=== PATIENT | male | born 1985 | race American Indian/Alaskan Native ===

== ENCOUNTER 2016-08-13 00:41 | Emergency (ER) | payer SELFPAY ==
[2016-08-13] MEDS ORDERED: NACL 0.9% 1000 ML 1,000 ML IV ONE (00:49)
[2016-08-13 01:15] LABS: Basophils % (Auto) 0.5 % (0.0-1.8); Eosinophils % (Auto) 1.6 % (0.0-4.3); Hematocrit 44.4 % (35.5-45.6); Hemoglobin 14.9 gm/dl (11.8-15.2); Mean Corpuscular HGB Conc 34 % (32-34); Mean Corpuscular Hemoglobin 31 pg (28-32); Mean Corpuscular Volume 93 fl (84-94); Platelet Count 227 K/mm3 (140-440); Red Blood Count 4.75 M/mm3 (3.65-5.03); Red Cell Distribution Width 12.3 % (13.2-15.2); White Blood Count 6.1 K/mm3 (4.5-11.0)
[2016-08-13 01:32] LABS: INR 1.13 (0.87-1.13)
[2016-08-13 01:33] LABS: Alanine Aminotransferase 18 units/L (7-56); Albumin 4.4 g/dL (3.9-5); Albumin/Globulin Ratio 1.5 %; Alkaline Phosphatase 66 units/L (35-129); Anion Gap 19 mmol/L; Blood Urea Nitrogen 10 mg/dL (9-20); Calcium 9.2 mg/dL (8.4-10.2); Carbon Dioxide 23 mmol/L (22-30); Chloride 102.5 mmol/L (98-107); Glucose 117 mg/dL (75-100); Lipase 34 units/L (13-60); Partial Thromboplastin Time 29.1 Sec. (24.2-36.6); Potassium 3.7 mmol/L (3.6-5.0); Sodium 141 mmol/L (137-145); Total Protein 7.3 g/dL (6.3-8.2)
[2016-08-13 06:14] VITALS: BP 126/88
--- NOTE | 2016-08-17 13:30 | ED Elopement Review ---
ED Pt Elopement review - Results review Lab results: Laboratory Tests 08/13/16 08/13/16 08/13/16 00:54 00:54 00:54 WBC 6.1 RBC 4.75 Hgb 14.9 Hct 44.4 MCV 93 MCH 31 MCHC 34 RDW 12.3 L Plt Count 227 Lymph % (Auto) 33.7 Upson % (Auto) 11.7 H Eos % (Auto) 1.6 Baso % (Auto) 0.5 Lymph # 2.1 Upson # 0.7 Eos # 0.1 Baso # 0.0 Seg Neutrophils % 52.5 Seg Neutrophils # 3.2 PT 14.4 INR 1.13 APTT 29.1 Sodium 141 Potassium 3.7 Chloride 102.5 Carbon Dioxide 23 Anion Gap 19 BUN 10 Creatinine 0.8 Estimated GFR > 60 BUN/Creatinine Ratio 12.50 Glucose 117 H Calcium 9.2 Total Bilirubin 0.70 AST 19 ALT 18 Alkaline Phosphatase 66 Total Protein 7.3 Albumin 4.4 Albumin/Globulin Ratio 1.5 Lipase 34 Blood Type Antibody Screen JOANNA Antibody Screen 08/13/16 00:54 WBC RBC Hgb Hct MCV MCH MCHC RDW Plt Count Lymph % (Auto) Upson % (Auto) Eos % (Auto) Baso % (Auto) Lymph # Upson # Eos # Baso # Seg Neutrophils % Seg Neutrophils # PT INR APTT Sodium Potassium Chloride Carbon Dioxide Anion Gap BUN Creatinine Estimated GFR BUN/Creatinine Ratio Glucose Calcium Total Bilirubin AST ALT Alkaline Phosphatase Total Protein Albumin Albumin/Globulin Ratio Lipase Blood Type B POSITIVE Antibody Screen TNR JOANNA Antibody Screen Negative - Call Back decision Pt Call Back Decision: No action required
== END 2016-08-13 01:00 | disposition left against medical advice (07) ==
LOC: ED 00:41
DX: R10.9 Unspecified abdominal pain (principal); K92.1 Melena; Z53.21 Procedure and treatment not carried out due to patient leaving prior to being seen by health care provider
CPT/HCPCS: 36415; 80053; 83690; 85025; 85610; 85730; 86850; 86900; 86901; 93005; 93010

== ENCOUNTER 2016-08-17 14:10 | Emergency (ER) | payer SELFPAY ==
--- NOTE | 2016-08-17 14:32 | Emergency Department Report ---
Entered by VALDEZ WALDEN, acting as scribe for ZHENG MENENDEZ NP. Chief Complaint: Pain General Stated Complaint: BLOOD IN STOOL/BODY PAIN - HPI History of Present Illness: 31 y/o male, nontoxic, well developed, NAD, c/o of diffuse abdominal pain beginning 3 days ago. Associated constipation, slight bloody stools and body aches but denies fever, chills, nausea, vomiting, SOB, CP, PEDROZA, blurry vision, dizziness. Patient [facility] 3 days ago but eloped. - Exam Vital Signs: Vital Signs 08/17/16 14:18 Temperature 98 F Pulse Rate 59 L Respiratory 20 Rate Blood Pressure 124/81 O2 Sat by Pulse 99 Oximetry Physical Exam: GENERAL: The patient is a well-developed, well-nourished male in no apparent distress. Patient is alert and oriented x3. ABDOMEN: Soft, nontender, and nondistended. Positive bowel sounds. Positive lower diffuse abdominal pain. Not tender to touch. No hepatosplenomegaly was noted. No guarding or rebound tenderness, negative epigastric bruit. Negative psoas sign, negative oates sign, negative McBurneys sign MSE screening note: Focused history and physical exam performed. Due to findings the following was ordered: CBC, CMP, Lipase, amylase, UA ED Disposition for MSE Condition: Stable This documentation as recorded by the scribe,VALDEZ WALDEN,accurately reflects the service I personally performed and the decisions made by ,ZHENG MENENDEZ, DEVYN.
[2016-08-17 14:42] LABS: Basophils % (Auto) 0.8 % (0.0-1.8); Eosinophils % (Auto) 1.1 % (0.0-4.3); Hematocrit 46.9 % (35.5-45.6); Hemoglobin 15.5 gm/dl (11.8-15.2); Mean Corpuscular HGB Conc 33 % (32-34); Mean Corpuscular Hemoglobin 31 pg (28-32); Mean Corpuscular Volume 94 fl (84-94); Platelet Count 263 K/mm3 (140-440); Red Blood Count 4.99 M/mm3 (3.65-5.03); Red Cell Distribution Width 12.5 % (13.2-15.2); White Blood Count 5.9 K/mm3 (4.5-11.0)
[2016-08-17 15:09] LABS: Alanine Aminotransferase 25 units/L (7-56); Albumin 4.6 g/dL (3.9-5); Albumin/Globulin Ratio 1.5 %; Alkaline Phosphatase 69 units/L (35-129); Amylase 64 units/L (27-131); Anion Gap 16 mmol/L; BUN/Creatinine Ratio 7.77; Blood Urea Nitrogen 7 mg/dL (9-20); Calcium 9.5 mg/dL (8.4-10.2); Carbon Dioxide 28 mmol/L (22-30); Chloride 100.2 mmol/L (98-107); Glucose 94 mg/dL (75-100); Lipase 37 units/L (13-60); Sodium 140 mmol/L (137-145); Total Protein 7.6 g/dL (6.3-8.2)
[2016-08-17] MEDS ORDERED: TYLENOL PO ONE (19:14)
[2016-08-17] MEDS ORDERED: PEPCID PO ONE (19:14)
--- NOTE | 2016-08-17 19:19 | Emergency Department Report ---
HPI - General Chief Complaint: Pain General Time Seen by Provider: 08/17/16 19:13 - HPI HPI: The patient's 31-year-old male who presents for evaluation of abdominal pain. The patient reports that his pain began one week ago, and has been constant since onset, 10/10 in severity, concentrated to the left lower quadrant, and associated with nausea without vomiting. The patient denies fever, chills, night sweats, diarrhea, blood in the stool within the past 48 hours, dysuria, hematuria, flank pain, diarrhea, penile discharge, inability to pass flatus. ED Past Medical Hx - Past Medical History Previous Medical History?: Yes Additional medical history: Constipation - Surgical History Past Surgical History?: No - Social History Smoking Status: Never Smoker Substance Use Type: Alcohol, Other - Medications Home Medications: Home Medications Medication Instructions Recorded Confirmed Last Taken Type HYDROcodone/APAP 7.5-325 [[place] 1 each PO Q8HR PRN #14 tablet 08/17/16 Unknown Rx 7.5-325 mg TAB] Ondansetron [Zofran TAB] 4 mg PO Q8HR PRN #15 tablet 08/17/16 Unknown Rx Pantoprazole [Protonix] 40 mg PO BID #30 tablet 08/17/16 Unknown Rx ED Review of Systems ROS: Stated complaint: BLOOD IN STOOL/BODY PAIN Other details as noted in HPI Constitutional: denies: fever ENT: denies: throat or neck pain Respiratory: denies: cough, shortness of breath Cardiovascular: denies: chest pain Endocrine: denies unexplained weight loss or gain Gastrointestinal: reports abdominal pain, nausea Genitourinary: denies: dysuria Musculoskeletal: denies: leg swelling Skin: denies: rash Neurological: denies: headache Hematological/Lymphatic: denies: easy bleeding or easy bruising Psych: denies sadness or hopelessness Physical Exam - Physical Exam Vital Signs: Vital Signs 08/17/16 14:18 Temperature 98 F Pulse Rate 59 L Respiratory 20 Rate Blood Pressure 124/81 O2 Sat by Pulse 99 Oximetry Physical Exam: General: well-nourished, well-developed, no acute distress Head: Normocephalic, atraumatic Eyes: normal sclera ENT: Mucous membranes are pale and dry Neck: No neck stiffness, no cervical adenopathy Respiratory: Breath sounds equal bilaterally, no wheezing, rales, or rhonchi Cardio: S1 and S2 present, no murmurs, rubs, gallops, capillary refill is delayed Abdomen: Normoactive bowel sounds, soft abdomen, left lower quadrant tenderness to palpation present, no rigidity, no guarding or rebound tenderness Musc: No pitting edema Skin: No rash Neuro: no facial drooping, normal speech Psych: Normal affect ED Course Vital Signs 08/17/16 14:18 Temperature 98 F Pulse Rate 59 L Respiratory 20 Rate Blood Pressure 124/81 O2 Sat by Pulse 99 Oximetry ED Medical Decision Making - Lab Data Result diagrams: 08/17/16 14:29 08/17/16 14:29 - Medical Decision Making The patient was seen and examined by myself. The patient is placed on a surveillance monitor and continuous pulse ox. On initial evaluation, the patient was found to be in no distress. Evaluation orders were placed. The patient given a tablet of Tylenol for his pain. Lab results were grossly unremarkable. The patient was reevaluated and reported that their symptoms were markedly improved. The patient is stable for discharge with outpatient follow-up. The patient is given follow-up and return instructions. The patient expressed understanding and agreed with the plan. The patient is discharged in stable condition. Critical care attestation.: If time is entered above; I have spent that time in minutes in the direct care of this critically ill patient, excluding procedure time. ED Disposition Clinical Impression: Dehydration, Acute abdominal pain in left lower quadrant Disposition: DISCHARGED TO HOME OR SELFCARE Is pt being admited?: No Does the pt Need Aspirin: No Condition: Stable Instructions: Gastroenteritis (ED), Food Poisoning (ED), Peptic Ulcer (ED) Additional Instructions: Do not take more than the prescribed dose of norco/pain medicine, or combine or take the pain medicine prescribed to you today with other pain medicine, sleeping medicine or other sedatives, or with alcohol, as doing so may cause central nervous system sedation and respiratory depression, and potentially cause you to stop breathing and . Additionally, do not drive a vehicle, operate heavy machinery, or engage in any activity that would cause harm to yourself or others after taking the pain medicine prescribed to you. Prescriptions: HYDROcodone/APAP 7.5-325 [[place] 7.5-325 mg TAB] 1 each PO Q8HR PRN #14 tablet PRN Reason: Pain Ondansetron [Zofran TAB] 4 mg PO Q8HR PRN #15 tablet PRN Reason: Nausea Pantoprazole [Protonix] 40 mg PO BID #30 tablet Referrals: PRIMARY CARE, [Primary Care Provider] - 3-5 Days Time of Disposition: 19:15
[2016-08-17 19:44] LABS: Bacteria,Urine 1+ /HPF (Negative); Bilirubin,Urine NEG (Negative); Blood,Urine NEG (Negative); Ketones,Urine NEG (Negative); Leukocyte Esterase,Urine NEG (Negative); Mucus,Urine FEW /HPF; Nitrite,Urine NEG (Negative); Protein,Urine <15 mg/dL mg/dL (Negative); Urobilinogen,Urine < 2.0 mg/dL (<2.0)
[2016-08-17 20:26] VITALS: BP 115/70
== END 2016-08-17 20:24 | disposition home or self-care (01) ==
LOC: ED 14:10
DX: E86.0 Dehydration (principal); R10.32 Left lower quadrant pain
CPT/HCPCS: 36415; 80053; 81001; 82150; 83690; 85025; 99284